=== PATIENT | male | born 1965 | race Caucasian/White ===

== ENCOUNTER 2020-11-17 22:05 | Observation (INO) ==
[2020-11-18 00:15] LABS: BUN/Creatinine Ratio 16 (6-26); Blood Urea Nitrogen 14 mg/dL (6-20); Calcium 8.9 mg/dL (8.6-10.3); Carbon Dioxide 26 mEq/L (23-29); Chloride 98 mEq/L (98-107); Glucose 128 mg/dL (70-105); Osmolality,Calculated 276 (280-300); Potassium 4.3 mEq/L (3.5-5.1); Sodium 132 mEq/L (136-145); eGFR For African Americans > 60 (> 60); eGFR For Non-African Americans > 60 (> 60)
[2020-11-18 00:29] LABS: Hematocrit 46.3 % (37.5-50.1); Hemoglobin 15.9 g/dL (12.9-16.9); Mean Corpuscular HGB Conc 34.3 g/dL (31.6-35.5); Mean Corpuscular Hemoglobin 30.5 pg (28.0-33.3); Mean Corpuscular Volume 88.7 fL (83.0-100.0); Mean Platelet Volume 11.4 fL (9.4-12.4); Platelet Count 220 K/mcL (140-400); Red Blood Count 5.22 M/mcL (4.19-5.50); Red Cell Distribution Width 12.2 % (11.5-14.5); White Blood Count 19.4 K/mcL (4.3-11.1)
[2020-11-18 02:01] LABS: Bilirubin,Urine Negative (Negative); Blood,Urine Negative (Negative); Clarity,Urine Clear (Clear); Color,Urine Yellow (Yellow); Glucose,Urine (UA) Normal (Normal); Ketones,Urine 20 mg/dL (Negative); Leukocyte Esterase,Urine Negative (Negative); Mucus,Urine Few per lpf (None-Few); Nitrite,Urine Negative (Negative); Protein,Urine 50 mg/dL (Neg-Trace); Specific Gravity,Urine 1.028 (1.010-1.025); Urobilinogen,Urine Normal (Normal); WBC,Urine 0-3 per hpf (0-3)
[2020-11-18] MEDS ORDERED: Isovue-370 500 ML BOTTLE IVP ONE (02:40)
[2020-11-18] MEDS ORDERED: Piperacillin/Tazobactam 3.375 GM in Water for inj. (sterile) 20 ML IVP ONE (03:33)
[2020-11-18] MEDS ORDERED: *HR* HYDROmorphone (PF) 1 MG/ML SYRINGE IVP ONE (04:42)
[2020-11-18] MEDS ORDERED: Ondansetron 4 MG/2 ML VIAL IVP ONE (04:42)
[2020-11-18 06:20] LABS: INR 1.2; Prothrombin Time 13.3 Seconds (9.4-12.1)
[2020-11-18 06:22] LABS: Activated Partial Thrombo Time 31.1 Seconds (26.0-36.0)
[2020-11-18] MEDS ORDERED: Ondansetron 4 MG/2 ML VIAL IVP PRN (06:27)
[2020-11-18] MEDS ORDERED: *HR* OxyCODONE/APAP 5/325 TABLET PO PRN ×2 (06:27→11:16)
[2020-11-18] MEDS ORDERED: 0.9 % Sodium Chloride 1,000 ML IVC SCH (06:30)
[2020-11-18] MEDS ORDERED: Ondansetron 4 MG/2 ML VIAL ONE (07:49)
[2020-11-18] MEDS ORDERED: *HR* Propofol 200 MG/20 ML VIAL IVP ONE (07:49)
[2020-11-18] MEDS ORDERED: Lidocaine -MPF 2% 2 ML VIAL ONE (07:49)
[2020-11-18] MEDS ORDERED: *HR* Midazolam HCl 2 MG/2 ML VIAL ONE (07:49)
[2020-11-18] MEDS ORDERED: *HR* Rocuronium Bromide 50 MG/5 ML VIAL ONE ×2 (07:49→09:51)
[2020-11-18] MEDS ORDERED: *HR* FentaNYL (PF) 100 MCG/2 ML VIAL ONE (07:49)
[2020-11-18] MEDS ORDERED: Lidocaine -MPF 4% 5 ML AMPUL ONE (07:49)
[2020-11-18] MEDS ORDERED: Promethazine 6.25 MG in Water for inj. (sterile) 20 ML IVPB PRN (09:02)
[2020-11-18] MEDS ORDERED: *HR* HYDROmorphone PF 0.5 MG/0.5 ML SYRINGE IVP PRN (09:02)
[2020-11-18] MEDS ORDERED: *HR* Meperidine 25 MG/ML SYRINGE IVP PRN (09:02)
[2020-11-18] MEDS ORDERED: Acetaminophen IV 1,000 MG/100 ML BAG IVPB ONE (09:23)
[2020-11-18] MEDS ORDERED: Sugammadex Sodium 200 MG/2 ML VIAL IV ONE (10:00)
[2020-11-18] MEDS ORDERED: *HR* HYDROMORPHONE 2 MG/ML VIAL ONE (10:05)
[2020-11-18] MEDS ORDERED: Piperacillin/Tazobactam 3.375 GM in 0.9 % Sodium Chloride Mini Bag 100 ML IVPB SCH (12:00)
[2020-11-18] MEDS: Ketorolac 15 MG/ML VIAL IVP SCH ×2 (12:41→17:33)
[2020-11-18] MEDS: 0.9 % Sodium Chloride 1,000 ML IVC SCH (12:41)
[2020-11-18] MEDS: Piperacillin/Tazobactam 3.375 GM in 0.9 % Sodium Chloride Mini Bag 100 ML IVPB SCH ×2 (12:42→20:57)
[2020-11-18] MEDS: Ondansetron 4 MG/2 ML VIAL IVP PRN (13:00)
[2020-11-18] MEDS ORDERED: traZODone 50 MG TABLET PO SCH (21:00)
[2020-11-19] MEDS: Pantoprazole 40 MG VIAL IVP SCH ×2 (00:26→09:02)
[2020-11-19] MEDS: 0.9 % Sodium Chloride 1,000 ML IVC SCH ×2 (00:35→09:02)
[2020-11-19] MEDS: Ketorolac 15 MG/ML VIAL IVP SCH ×3 (00:37→09:03)
[2020-11-19] MEDS: Piperacillin/Tazobactam 3.375 GM in 0.9 % Sodium Chloride Mini Bag 100 ML IVPB SCH ×2 (04:36→12:25)
[2020-11-19 07:42] VITALS: O2SAT 98
[2020-11-19] MEDS: Ondansetron 4 MG/2 ML VIAL IVP PRN (09:03)
[2020-11-19] MEDS ORDERED: 0.9 % Sodium Chloride Mini Bag 100 ML ONE (12:21)
[2020-11-19 12:38] LABS: Basophils % 0.1 %; Eosinophils % 0.1 %; Hematocrit 38.5 % (37.5-50.1); Immature Granulocytes % 0.6 % (0-4); Lymphocytes # 1.1 K/mcL (0.6-4.6); Lymphocytes % 7.3 %; Mean Corpuscular Hemoglobin 30.5 pg (28.0-33.3); Mean Corpuscular Volume 89.5 fL (83.0-100.0); Mean Platelet Volume 11.1 fL (9.4-12.4); Monocytes % 7.1 %; Neutrophils # 12.2 K/mcL (1.6-8.9); Platelet Count 183 K/mcL (140-400); Red Cell Distribution Width 12.9 % (11.5-14.5); Segmented Neutrophils % 84.8 %; White Blood Count 14.4 K/mcL (4.3-11.1)
[2020-11-19 12:39] LABS: Hemoglobin 13.1 g/dL (12.9-16.9)
[2020-11-19 12:41] VITALS: BP 136/82; PULSE 61; TEMP 98
[2020-11-19 12:54] LABS: BUN/Creatinine Ratio 16 (6-26); Blood Urea Nitrogen 15 mg/dL (6-20); Calcium 8.3 mg/dL (8.6-10.3); Carbon Dioxide 22 mEq/L (23-29); Chloride 106 mEq/L (98-107); Glucose 101 mg/dL (70-105); Osmolality,Calculated 281 (280-300); Potassium 3.8 mEq/L (3.5-5.1); Sodium 135 mEq/L (136-145); eGFR For African Americans > 60 (> 60); eGFR For Non-African Americans > 60 (> 60)
== END 2020-11-19 15:09 | disposition home or self-care (01) ==
LOC: 3BNU 22:05 → EMEROOARM 22:05 → 3BNU 11-18 05:43
PROVIDERS: ADMIT Surgery; ATTEND Surgery